=== PATIENT | male | born 1930 | race Caucasian/White ===

== ENCOUNTER 2021-03-11 13:15 | Emergency (ER) | payer OTHER, MEDICARE ==
--- NOTE | 2021-03-11 14:24 | CR ---
[id number] RAD/RAD Abd Flat and Upright 2V EXAM: RAD Abd Flat and Upright 2V INDICATION: ABDOMINAL PAIN, CONSTIPATION. COMPARISON: None. Discussion/Impression: Unobstructed bowel gas pattern. No radiographically evident pneumoperitoneum. Moderate stool burden in the colon and rectum. Correlate for constipation. Vinayak Cruz MD 03/11/21 0393 Thank you for allowing us to participate in the care of your patient.
[2021-03-11 14:31] LABS: CHLORIDE,CL 99 mmol/L (98-107); SODIUM,NA 135 mmol/L (136-145)
[2021-03-11] MEDS ORDERED: Sodium Phosphate,Monobasic/Sodium Phosphate,Dibasic Enema 133 ML Bottle RECTAL ONE (14:33)
--- NOTE | 2021-03-11 14:35 | EDM.PDOC ---
ED HPI GENERAL MEDICAL PROBLEM - General Stated Complaint: CONSTIPATED Time Seen by Provider: 03/11/21 14:01 Source of Information: Reports: Patient History Limitations: Reports: No Limitations - History of Present Illness INITIAL COMMENTS - FREE TEXT/NARRATIVE: Patient comes emergency department today from home's with concerns of inability to have a bowel movement. This patient has no history of constipation. He had a last bowel movement yesterday that was rather small and hard. Today he has tried to go to the bathroom what he relates to 20 times but he is unable to have a bowel movement. He does have the urge to go to the bathroom. He has no abdominal pain. He does complain of a little bit of distention of his abdomen. No nausea no vomiting. No difficulty with urination dysuria or urinary frequency. No fever no chills. No chest pain no shortness of breath or difficulty breathing. They have not tried anything for his constipation at home. - Related Data Allergies Allergy/AdvReac Type Severity Reaction Status Date / Time No Known Allergies Allergy Verified 03/11/21 14:58 ED ROS GENERAL - Review of Systems Review Of Systems: Comprehensive ROS is negative, except as noted in HPI. ED EXAM, GI/ABD - Physical Exam Exam: See Below Exam Limited By: No Limitations General Appearance: Alert, WD/WN, No Apparent Distress Neck: Normal Inspection, Supple Respiratory/Chest: No Respiratory Distress, Lungs Clear Cardiovascular: Normal Peripheral Pulses, Regular Rate, Rhythm GI/Abdominal Exam: Distended (Minimally no typanny on percussion), Abnormal Bowel Sounds (very infrequent). No: Guarding, Rigid, Rebound, Tender (Male) Exam: Deferred Rectal (Males) Exam: Deferred Back Exam: Normal Inspection, Full Range of Motion Extremities: Normal Inspection, Normal Range of Motion, No Pedal Edema, Normal Capillary Refill Neurological: Alert, Oriented, No Motor/Sensory Deficits Psychiatric: Normal Affect, Normal Mood Skin Exam: Warm, Dry, Intact, Normal Color Lymphatic: No Adenopathy Course - Vital Signs Last Recorded V/S: Last Vital Signs Temp 97.8 F 03/11/21 14:50 Pulse 57 L 03/11/21 14:50 Resp 18 03/11/21 14:50 BP 150/71 H 03/11/21 14:50 Pulse Ox 97 03/11/21 14:50 - Orders/Labs/Meds Labs: Laboratory Tests 03/11/21 03/11/21 03/11/21 Range/Units 14:06 14:06 14:06 WBC 10.8 H (4.0-10.0) x10^3/uL RBC 3.95 L (4.5-6.0) x10^6/uL Hgb 13.7 L (14.0-18.0) g/dL Hct 38.5 L (40.0-52.0) % MCV 97.5 H (78.0-93.0) fL MCH 34.7 H (26.0-32.0) pg MCHC 35.6 (32.0-36.0) g/dL RDW Coeff of Rafael 12.2 (10.0-15.0) % Plt Count 267 (130-400) x10^3/uL Neut % (Auto) 88.2 H (50.0-80.0) % Lymph % (Auto) 6.0 L (25.0-50.0) % Kendall % (Auto) 5.2 (2.0-11.0) % Eos % (Auto) 0.4 (0.0-4.0) % Baso % (Auto) 0.2 (0.2-1.2) % Sodium 135 L (136-145) mmol/L Potassium 4.2 (3.5-5.1) mmol/L Chloride 99 (98-107) mmol/L Carbon Dioxide 22 (21-32) mmol/L Anion Gap 18.2 H (5-15) mmol/L BUN 75 H* (7-18) mg/dL Creatinine 3.5 H* (0.70-1.30) mg/dL Est Cr Clr Drug Dosing TNP Estimated GFR (MDRD) 17 Glucose 235 H (70-99) mg/dL Lactic Acid 1.1 (0.4-2.0) mmol/L Calcium 8.8 (8.5-10.1) mg/dL Corrected Calcium 8.8 (8.5-10.1) mg/dL Total Bilirubin 0.9 (0.2-1.0) mg/dL AST 20 (15-37) U/L ALT 25 (16-63) U/L Alkaline Phosphatase 72 (46-116) U/L Total Protein 8.4 H (6.4-8.2) g/dL Albumin 4.0 (3.4-5.0) g/dL Globulin 4.4 Albumin/Globulin Ratio 0.91 Lipase 89 (73-393) U/L Meds: Medications Discontinued Medications Generic Name Dose Route Start Last Admin Trade Name Alicja PRN Reason Stop Dose Admin Bisacodyl 10 mg 03/11/21 14:58 03/11/21 15:30 Bisacodyl 10 Mg Supp RECTAL 03/11/21 14:59 10 mg ONETIME ONE Administration Magnesium Citrate 296 ml 03/11/21 16:43 03/11/21 17:08 Magnesium Citrate Solution 296 Ml Bottle PO 03/11/21 16:44 296 ml ONETIME ONE Administration Polyethylene Glycol 68 gm 03/11/21 14:58 03/11/21 15:15 Polyethylene Glycol 3350 Powder 17 Gm Packet PO 03/11/21 14:59 68 gm ONETIME ONE Administration Sodium Biphosphate/Sodium Phosphate 133 ml 03/11/21 14:33 03/11/21 14:48 Sodium Phosphate,Monobasic/Sodium Phosphate,Dibasic Enema 133 Ml Bottle RECTAL 03/11/21 14:34 133 ml ONETIME ONE Administration - Radiology Interpretation Free Text/Narrative:: Flat and upright x-ray of the abdomen nonobstructive bowel gas pattern. No radiologic evidence of pneumoperitoneum. Moderate stool burden in the colon and rectum. Correlate for constipation. - Re-Assessments/Exams Free Text/Narrative Re-Assessment/Exam: 03/11/21 15:47 I did review his laboratory evaluation from the [place] and on January 21, 2021 he had a similar creatinine of 3.3 with a BUN of 68. The patient initially was given a fleets enema. Although he was unable to retain it he had a small amount of stool production. His x-ray clearly shows quite a bit of stool burden. He was given 4 packets of MiraLAX orally. As well as a Bisocodyl suppository and he had a very small amount of of stool passage at this time. Rectal exam shows a very full rectal vault a very soft pliable stool. We will discharge the patient home with the family with a bottle of magnesium citrate to use at home. MiraLAX instructions over the next couple of days. He is to recheck in the emergency department if any new or worsening symptoms. His family who is a primary caregiver due to his Alzheimer's is comfortable with this plan and her questions were answered. 03/12/21 20:45 Departure - Departure Time of Disposition: 17:30 Disposition: Home, Self-Care 01 Clinical Impression: CKD (chronic kidney disease) Qualifiers: Chronic kidney disease stage: stage 4 (severe) Qualified Code(s): N18.4 - Chronic kidney disease, stage 4 (severe) Constipation Qualifiers: Constipation type: unspecified constipation type Qualified Code(s): K59.00 - Constipation, unspecified - Discharge Information Referrals: Fanta Richardson NP [Primary Care Provider] - Forms: ED Department Discharge Additional Instructions: Home today. Make sure and increase your fluid intake over the next few days and chronically as well. Miralax start tomorrow 2 capfuls in a large glass of water daily. Increase by one capful every 2 days until easy smooth bowel movement. So 3 capfuls in 2 days 4 capfuls in 4 days etc. And then slowly decrease until regular easy bowel movement. Once you get home. 1/2 bottle of magnesium citrate supplied from the ED, and then the rest of the bottle in 30 minutes. May have some abd cramping and pain with this but should subside once you have a bowel movement. Return to the ED if new or worsening symptoms. Follow up with PCP in the next 4-6 days if not improving sooner if worse.
[2021-03-11 14:42] LABS: ANION GAP 18.2 mmol/L (5-15)
[2021-03-11] MEDS ORDERED: Bisacodyl 10 MG Supp RECTAL ONE (14:58)
[2021-03-11] MEDS ORDERED: Polyethylene Glycol 3350 Powder 17 GM Packet PO ONE (14:58)
[2021-03-11] MEDS ORDERED: Magnesium Citrate Solution 296 ML Bottle PO ONE (16:43)
== END 2021-03-11 17:09 | disposition home or self-care (01) ==
LOC: VM.ED 13:15
DX: K59.00 Constipation, unspecified (principal); N18.4 Chronic kidney disease, stage 4 (severe)
CPT/HCPCS: 36415; 74019; 80053; 83605; 83690; 85025; 99283; 99284; A9270-GY

== ENCOUNTER 2021-07-31 12:40 | Emergency (ER) | payer OTHER, MEDICARE ==
[2021-07-31] MEDS ORDERED: Sodium Chloride 0.9% 10 ML Syringe FLUSH PRN (13:10)
--- NOTE | 2021-07-31 13:53 | CT ---
[id number] CT/CT Head WO IV EXAM: CT Head WO IV CLINICAL DATA: CONFUSION. COMPARISON STUDY: None FINDINGS: No intracranial hemorrhage, extra-axial fluid collection, mass, or acute ischemia. Generalized parenchymal atrophy with scattered areas of nonspecific white matter disease, commonly seen as sequela of chronic microvascular ischemia. Soft tissues are unremarkable. Paranasal sinuses and mastoid air cells are clear. Postsurgical changes of the orbits bilaterally. 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 IMPRESSION: No acute intracranial findings. Estuardo Barrtet DO 07/31/21 1293 Thank you for allowing us to participate in the care of your patient.
[2021-07-31 13:57] LABS: BARBITURATE SCREEN,URINE NEGATIVE (NEGATIVE); BENZODIAZEPINES SCREEN,URINE NEGATIVE (NEGATIVE); BUPRENORPHINE SCREEN,URINE NEGATIVE (NEGATIVE); METHAMPHETAMINE SCREEN, URINE NEGATIVE (NEGATIVE); THC SCREEN,URINE 50 NG/ML NEGATIVE (NEGATIVE)
--- NOTE | 2021-07-31 14:12 | EDM.PDOC ---
ED HPI GENERAL MEDICAL PROBLEM - General Chief Complaint: General Stated Complaint: SOB Time Seen by Provider: 07/31/21 13:50 Source of Information: Reports: Patient, Family History Limitations: Reports: Altered Mental Status (alzheimers) - History of Present Illness INITIAL COMMENTS - FREE TEXT/NARRATIVE: Patient comes emergency department today from home with his with his 's concerns of shortness of breath. Patient has a history of Alzheimer's Kidney disease hypertension who lives at home with his just prior to arrival the patient bent over to fruit or nut picker some garbage and when he stood up he had somewhat of a dazed appearance and he had some labored breathing for about 20 minutes. This resolved on its own. He has been well the past couple of days without any complaints. These are very typical symptoms that this patient has on a daily basis and has had these for many years according to the . She has not noticed any vomiting diarrhea increased urination fever. The patient has not complained of anything. History is somewhat limited with the patient's with Alzheimer's disease although the patient denies any complaints at this time. He has no lightheadedness weakness dizziness lightheadedness. No chest pain no shortness of breath or difficulty breathing. No abdominal pain nausea or vomiting. No hematuria dysuria urinary frequency. No black or tarry stools. The patient is asymptomatic upon arrival. He has symptoms that he typically has for many years that brought him into the emergency department have completely resolved prior to arrival. - Related Data Allergies Allergy/AdvReac Type Severity Reaction Status Date / Time No Known Allergies Allergy Verified 07/31/21 13:39 Home Meds: Home Meds Chlorthalidone 25 mg PO DAILY 07/31/21 [History] Cholecalciferol (Vitamin D3) [Vitamin D3] 50 mcg PO DAILY 07/31/21 [History] Citalopram [Citalopram HBr] 10 mg PO DAILY 07/31/21 [History] Finasteride 5 mg PO DAILY 07/31/21 [History] Folic Acid/Vit B Complex and C [Renal Vitamin Tablet] 0.8 mg PO DAILY 07/31/21 [History] Furosemide [Lasix] 10 mg PO DAILY 07/31/21 [History] Melatonin 6 mg PO BEDTIME 07/31/21 [History] Memantine [Namenda] 5 mg PO BID 07/31/21 [History] Spironolactone [Aldactone] 12.5 mg PO DAILY 07/31/21 [History] Tamsulosin [Tamsulosin 24 Hr] 0.4 mg PO DAILY 07/31/21 [History] amLODIPine Besylate [Amlodipine Besylate] 5 mg PO BID 07/31/21 [History] calcitrioL [Rocaltrol] 0.25 mcg PO MOWEFR 07/31/21 [History] hydrALAZINE [Apresoline] 10 mg PO Q8H 07/31/21 [History] ED ROS GENERAL - Review of Systems Review Of Systems: Unable To Obtain Reason Not Obtained: Alzheimers ED EXAM, GENERAL - Physical Exam Exam: See Below Exam Limited By: No Limitations General Appearance: Alert, WD/WN, No Apparent Distress Eye Exam: Bilateral Eye: EOMI, PERRL Ears: Normal External Exam Nose: Normal Inspection Throat/Mouth: Normal Inspection Head: Atraumatic, Normocephalic Neck: Normal Inspection, Supple, Non-Tender, Full Range of Motion Respiratory/Chest: No Respiratory Distress, Lungs Clear, Normal Breath Sounds, No Accessory Muscle Use, Chest Non-Tender Cardiovascular: Normal Peripheral Pulses, Regular Rate, Rhythm Peripheral Pulses: 2+: Radial (L), Radial (R), Posterior Tibial (L), Posterior Tibial (R), Dorsalis Pedis (L), Dorsalis Pedis (R) GI/Abdominal: Normal Bowel Sounds, Soft, Non-Tender (Male) Exam: Deferred Rectal (Males) Exam: Deferred Back Exam: Normal Inspection Extremities: Normal Inspection, Normal Range of Motion, Non-Tender, No Pedal Edema, Normal Capillary Refill Neurological: Alert, Oriented, Normal Cognition, No Motor/Sensory Deficits Psychiatric: Normal Affect, Normal Mood Skin Exam: Warm, Dry, Intact, Normal Color Course - Vital Signs Last Recorded V/S: Last Vital Signs Temp 96 F L 07/31/21 12:40 Pulse 65 07/31/21 12:40 Resp 16 07/31/21 12:40 BP 145/76 H 07/31/21 12:40 Pulse Ox 96 07/31/21 12:40 - Orders/Labs/Meds Orders: Active Orders 24 hr Category Date Time Status Peripheral IV Insertion Adult [OM.PC] Routine Oth 07/31/21 13:10 Ordered Labs: Laboratory Tests 11/07/31/21 07/31/21 Range/Units 13:15 13:36 13:36 WBC (4.0-10.0) x10^3/uL RBC (4.5-6.0) x10^6/uL Hgb (14.0-18.0) g/dL Hct (40.0-52.0) % MCV (78.0-93.0) fL MCH (26.0-32.0) pg MCHC (32.0-36.0) g/dL RDW Coeff of Rafael (10.0-15.0) % Plt Count (130-400) x10^3/uL Immature Gran % (Auto) (0.00-0.43) % Neut % (Auto) (50.0-80.0) % Lymph % (Auto) (25.0-50.0) % Moffat % (Auto) (2.0-11.0) % Eos % (Auto) (0.0-4.0) % Baso % (Auto) (0.2-1.2) % Neut # (Auto) (1.8-7.7) x10^3/uL Lymph # (Auto) (1.0-4.8) x10^3/uL Moffat # (Auto) (0.0-0.8) x10^3/uL Eos # (Auto) (0.0-0.5) x10^3/uL Baso # (Auto) (0.0-0.2) x10^3/uL Immature Gran # (Auto) (0.00-0.07) x10^3/uL PT (9.9-12.5) SEC INR (2.0-3.5) APTT (25.6-32.8) SEC Sodium (136-145) mmol/L Potassium (3.5-5.1) mmol/L Chloride (98-107) mmol/L Carbon Dioxide (21-32) mmol/L Anion Gap (5-15) mmol/L BUN (7-18) mg/dL Creatinine (0.70-1.30) mg/dL Est Cr Clr Drug Dosing mL/min Estimated GFR (MDRD) Glucose (70-99) mg/dL Lactic Acid (0.4-2.0) mmol/L Calcium (8.5-10.1) mg/dL Corrected Calcium (8.5-10.1) mg/dL Phosphorus (2.6-4.7) mg/dL Magnesium (1.8-2.4) mg/dL Total Bilirubin (0.2-1.0) mg/dL AST (15-37) U/L ALT (16-63) U/L Alkaline Phosphatase (46-116) U/L Troponin I High Sens (<=76) ng/L C-Reactive Protein (<=0.9) mg/dL NT-Pro-B Natriuret Pep (<=450) pg/mL Total Protein (6.4-8.2) g/dL Albumin (3.4-5.0) g/dL Globulin Albumin/Globulin Ratio Urine Color Dark yellow H (YELLOW) Urine Appearance Slightly cloudy H (CLEAR) Urine pH 6.0 (5.0-8.0) Ur Specific [place] 1.020 Urine Protein Negative (NEGATIVE) mg/dL Urine Glucose (UA) Negative (NEGATIVE) mg/dL Urine Ketones Negative (NEGATIVE) mg/dL Urine Occult Blood Negative (NEGATIVE) Urine Nitrite Negative (NEGATIVE) Urine Bilirubin Small H (NEGATIVE) Urine Urobilinogen 4.0 H (0.2) EU/dL Ur Leukocyte Esterase Negative (NEGATIVE) Urine Opiates Screen Negative (NEGATIVE) Ur Buprenorphine Scrn Negative (NEGATIVE) Ur Oxycodone Screen Negative (NEGATIVE) Urine Methadone Screen Negative (NEGATIVE) Ur Barbiturates Screen Negative (NEGATIVE) Ur Phencyclidine Scrn Negative (NEGATIVE) Ur Amphetamine Screen Negative (NEGATIVE) U Methamphetamines Scrn Negative (NEGATIVE) Urine MDMA Screen Negative (NEGATIVE) U Benzodiazepines Scrn Negative (NEGATIVE) U Cocaine Metab Screen Negative (NEGATIVE) U Marijuana (THC) Screen Negative (NEGATIVE) Ethyl Alcohol (0-3) mg/dL SARS CoV-2 RNA Rapid LORENA Negative (NEGATIVE) 07/31/21 07/31/21 07/31/21 Range/Units 13:49 13:49 13:49 WBC 6.6 (4.0-10.0) x10^3/uL RBC 3.86 L (4.5-6.0) x10^6/uL Hgb 13.0 L (14.0-18.0) g/dL Hct 37.4 L (40.0-52.0) % MCV 96.9 H (78.0-93.0) fL MCH 33.7 H (26.0-32.0) pg MCHC 34.8 (32.0-36.0) g/dL RDW Coeff of Rafael 11.3 (10.0-15.0) % Plt Count 283 (130-400) x10^3/uL Immature Gran % (Auto) 0.20 (0.00-0.43) % Neut % (Auto) 71.6 (50.0-80.0) % Lymph % (Auto) 16.8 L (25.0-50.0) % Moffat % (Auto) 7.9 (2.0-11.0) % Eos % (Auto) 3.2 (0.0-4.0) % Baso % (Auto) 0.3 (0.2-1.2) % Neut # (Auto) 4.7 (1.8-7.7) x10^3/uL Lymph # (Auto) 1.1 (1.0-4.8) x10^3/uL Moffat # (Auto) 0.5 (0.0-0.8) x10^3/uL Eos # (Auto) 0.2 (0.0-0.5) x10^3/uL Baso # (Auto) 0.0 (0.0-0.2) x10^3/uL Immature Gran # (Auto) 0.01 (0.00-0.07) x10^3/uL PT 10.5 (9.9-12.5) SEC INR 0.9 L (2.0-3.5) APTT (25.6-32.8) SEC Sodium 139 (136-145) mmol/L Potassium 3.7 (3.5-5.1) mmol/L Chloride 100 (98-107) mmol/L Carbon Dioxide 26 (21-32) mmol/L Anion Gap 16.7 H (5-15) mmol/L BUN 94 H* (7-18) mg/dL Creatinine 4.2 H* (0.70-1.30) mg/dL Est Cr Clr Drug Dosing 11.15 mL/min Estimated GFR (MDRD) 13 Glucose 179 H (70-99) mg/dL Lactic Acid (0.4-2.0) mmol/L Calcium 9.5 (8.5-10.1) mg/dL Corrected Calcium 9.7 (8.5-10.1) mg/dL Phosphorus 4.3 (2.6-4.7) mg/dL Magnesium 2.2 (1.8-2.4) mg/dL Total Bilirubin 0.7 (0.2-1.0) mg/dL AST 15 (15-37) U/L ALT 24 (16-63) U/L Alkaline Phosphatase 76 (46-116) U/L Troponin I High Sens 15 (<=76) ng/L C-Reactive Protein < 0.2 (<=0.9) mg/dL NT-Pro-B Natriuret Pep 953 H (<=450) pg/mL Total Protein 7.9 (6.4-8.2) g/dL Albumin 3.7 (3.4-5.0) g/dL Globulin 4.2 Albumin/Globulin Ratio 0.88 Urine Color (YELLOW) Urine Appearance (CLEAR) Urine pH (5.0-8.0) Ur Specific [place] Urine Protein (NEGATIVE) mg/dL Urine Glucose (UA) (NEGATIVE) mg/dL Urine Ketones (NEGATIVE) mg/dL Urine Occult Blood (NEGATIVE) Urine Nitrite (NEGATIVE) Urine Bilirubin (NEGATIVE) Urine Urobilinogen (0.2) EU/dL Ur Leukocyte Esterase (NEGATIVE) Urine Opiates Screen (NEGATIVE) Ur Buprenorphine Scrn (NEGATIVE) Ur Oxycodone Screen (NEGATIVE) Urine Methadone Screen (NEGATIVE) Ur Barbiturates Screen (NEGATIVE) Ur Phencyclidine Scrn (NEGATIVE) Ur Amphetamine Screen (NEGATIVE) U Methamphetamines Scrn (NEGATIVE) Urine MDMA Screen (NEGATIVE) U Benzodiazepines Scrn (NEGATIVE) U Cocaine Metab Screen (NEGATIVE) U Marijuana (THC) Screen (NEGATIVE) Ethyl Alcohol < 3 (0-3) mg/dL SARS CoV-2 RNA Rapid LORENA (NEGATIVE) 07/31/21 07/31/21 Range/Units 13:49 13:49 WBC (4.0-10.0) x10^3/uL RBC (4.5-6.0) x10^6/uL Hgb (14.0-18.0) g/dL Hct (40.0-52.0) % MCV (78.0-93.0) fL MCH (26.0-32.0) pg MCHC (32.0-36.0) g/dL RDW Coeff of Rafael (10.0-15.0) % Plt Count (130-400) x10^3/uL Immature Gran % (Auto) (0.00-0.43) % Neut % (Auto) (50.0-80.0) % Lymph % (Auto) (25.0-50.0) % Moffat % (Auto) (2.0-11.0) % Eos % (Auto) (0.0-4.0) % Baso % (Auto) (0.2-1.2) % Neut # (Auto) (1.8-7.7) x10^3/uL Lymph # (Auto) (1.0-4.8) x10^3/uL Moffat # (Auto) (0.0-0.8) x10^3/uL Eos # (Auto) (0.0-0.5) x10^3/uL Baso # (Auto) (0.0-0.2) x10^3/uL Immature Gran # (Auto) (0.00-0.07) x10^3/uL PT (9.9-12.5) SEC INR (2.0-3.5) APTT 23.2 L (25.6-32.8) SEC Sodium (136-145) mmol/L Potassium (3.5-5.1) mmol/L Chloride (98-107) mmol/L Carbon Dioxide (21-32) mmol/L Anion Gap (5-15) mmol/L BUN (7-18) mg/dL Creatinine (0.70-1.30) mg/dL Est Cr Clr Drug Dosing mL/min Estimated GFR (MDRD) Glucose (70-99) mg/dL Lactic Acid 0.4 (0.4-2.0) mmol/L Calcium (8.5-10.1) mg/dL Corrected Calcium (8.5-10.1) mg/dL Phosphorus (2.6-4.7) mg/dL Magnesium (1.8-2.4) mg/dL Total Bilirubin (0.2-1.0) mg/dL AST (15-37) U/L ALT (16-63) U/L Alkaline Phosphatase (46-116) U/L Troponin I High Sens (<=76) ng/L C-Reactive Protein (<=0.9) mg/dL NT-Pro-B Natriuret Pep (<=450) pg/mL Total Protein (6.4-8.2) g/dL Albumin (3.4-5.0) g/dL Globulin Albumin/Globulin Ratio Urine Color (YELLOW) Urine Appearance (CLEAR) Urine pH (5.0-8.0) Ur Specific [place] Urine Protein (NEGATIVE) mg/dL Urine Glucose (UA) (NEGATIVE) mg/dL Urine Ketones (NEGATIVE) mg/dL Urine Occult Blood (NEGATIVE) Urine Nitrite (NEGATIVE) Urine Bilirubin (NEGATIVE) Urine Urobilinogen (0.2) EU/dL Ur Leukocyte Esterase (NEGATIVE) Urine Opiates Screen (NEGATIVE) Ur Buprenorphine Scrn (NEGATIVE) Ur Oxycodone Screen (NEGATIVE) Urine Methadone Screen (NEGATIVE) Ur Barbiturates Screen (NEGATIVE) Ur Phencyclidine Scrn (NEGATIVE) Ur Amphetamine Screen (NEGATIVE) U Methamphetamines Scrn (NEGATIVE) Urine MDMA Screen (NEGATIVE) U Benzodiazepines Scrn (NEGATIVE) U Cocaine Metab Screen (NEGATIVE) U Marijuana (THC) Screen (NEGATIVE) Ethyl Alcohol (0-3) mg/dL SARS CoV-2 RNA Rapid LORENA (NEGATIVE) Meds: Medications Discontinued Medications Generic Name Dose Route Start Last Admin Trade Name Freq PRN Reason Stop Dose Admin Sodium Chloride 10 ml 07/31/21 13:10 Sodium Chloride 0.9% 10 Ml Syringe FLUSH ASDIRECTED PRN Keep Vein Open - Radiology Interpretation Free Text/Narrative:: Chest x-ray per radiology shows no acute cardiopulmonary abnormality. No infiltrates effusion pneumothorax or edema. CT of the head per radiology shows no acute intracranial findings. Generalized parenchymal atrophy with scattered areas of nonspecific white matter disease commonly seen as sequelae of chronic microvascular ischemia - Re-Assessments/Exams Free Text/Narrative Re-Assessment/Exam: 07/31/21 14:46 Laboratory evaluation is really unchanged from the last time I saw him. Hemoglobin is stable at 13.0. CMP with a creatinine of 4.2, BUN 94 this is up just a little bit from 3.5. On 03/11/2021.. CT of the head is negative. Chest x-ray is negative. He clearly is in mild acute kidney injury in the presence of chronic renal failure CKD stage 4. We will discharge him home with increase fluid intake as he appears dry and have him follow up with PCP early next week. 07/31/21 14:47 Departure - Departure Time of Disposition: 14:43 Disposition: Home, Self-Care 01 Clinical Impression: Shortness of breath CKD (chronic kidney disease) Qualifiers: Chronic kidney disease stage: stage 4 (severe) Qualified Code(s): N18.4 - Chronic kidney disease, stage 4 (severe) - Discharge Information Instructions: Shortness of Breath, Adult, [id number]-[id number], Chronic Kidney Disease, Adult, [id number] Referrals: Fanta Richardson NP [Primary Care Provider] - Forms: ED Department Discharge Additional Instructions: His kidney function is worse today. 4.2 up from 3.5. He really needs to increase fluid intake at home and have his labs rechecked next week. Continue previous therapies to include medications. Keep working with your PCP or social media community manager for placement. Return to the ED if emergency symptoms develop. Follow up with PCP for all chronic concerns or complaints. Sepsis Event Note (ED) - Evaluation Sepsis Screening Result: No Definite Risk - Focused Exam Vital Signs: Vital Signs Temp Pulse Resp BP Pulse Ox 07/31/21 12:40 96 F L 65 16 145/76 H 96
--- NOTE | 2021-07-31 14:13 | PCM.EKG ---
#1 Interpretation EKG Date: 07/31/21 Time: 13:13 Rhythm: NSR Rate (Beats/Min): 58 [place]: Normal P-Wave: Present QRS: Normal ST-T: Normal QT: Normal Comparison: No Change
[2021-07-31 14:22] LABS: CHLORIDE,CL 100 mmol/L (98-107); SODIUM,NA 139 mmol/L (136-145)
[2021-07-31 14:24] LABS: ANION GAP 16.7 mmol/L (5-15)
--- NOTE | 2021-07-31 14:25 | CR ---
[id number] RAD/RAD Chest PA And Lateral EXAM: RAD Chest PA And Lateral INDICATION: SYNCOPE,BRADYCARDIA. COMPARISON: None. DISCUSSION: Cardiomediastinal silhouette is normal in size and contour. No infiltrate, effusion, pneumothorax, or edema. Generalized osseous demineralization. Mild multilevel degenerative changes of the visualized spine. Chronic changes of the left glenohumeral joint. IMPRESSION: No acute cardiopulmonary abnormality. Estuardo Barrett DO 07/31/21 1429 Thank you for allowing us to participate in the care of your patient.
== END 2021-07-31 15:15 | disposition home or self-care (01) ==
LOC: VM.ED 12:40
DX: R06.02 Shortness of breath (principal); N18.4 Chronic kidney disease, stage 4 (severe); Z79.899 Other long term (current) drug therapy; Z20.822 Contact with and (suspected) exposure to COVID-19
CPT/HCPCS: 36415; 70450; 71046; 80053; 80305-QW; 80307; 81003; 83605; 83735; 83880; 84100; 84484; 85025; 85610; 85730; 86140; 93005; 99285-25; U0002

== ENCOUNTER 2021-12-16 16:03 | Emergency (ER) | payer OTHER, MEDICARE ==
[2021-12-16 17:03] LABS: CHLORIDE,CL 101 mmol/L (98-107); SODIUM,NA 138 mmol/L (136-145)
[2021-12-16 17:04] LABS: ANION GAP 15.8 mmol/L (5-15)
== END 2021-12-16 17:55 | disposition home or self-care (01) ==
LOC: VM.ED 16:03
DX: R41.0 Disorientation, unspecified (principal); E11.9 Type 2 diabetes mellitus without complications; G30.1 Alzheimer's disease with late onset; Z79.899 Other long term (current) drug therapy
CPT/HCPCS: 36415; 71045; 80053; 81001; 83605; 83880; 84484; 85025; 85610; 86140; 99284; 99284-25